=== PATIENT | female | born 1945 | race Caucasian/White ===

== ENCOUNTER → 2016-05-11 | Outpatient (REF) | payer MEDICARE ==
[~2016-05-11] MED LIST: BUPR150T9 PO; NAPR250T34 PO
[2016-05-11 16:42] LABS: BILIRUBIN,URINE Negative (Negative); CLARITY,URINE Clear; COLOR,URINE Yellow; GLUCOSE, URINE (UA) Negative (Negative); LEUKOCYTE ESTERASE ,URINE Negative (Negative); PH,URINE 6.5 (5.0 - 8.0); UROBILINOGEN,URINE 0.2 mg/dL (0.2-1.0)
== END ==
LOC: LAB 16:22
PROVIDERS: ATTEND Obstetrics & Gynecology
DX: R32 Unspecified urinary incontinence (principal)
CPT/HCPCS: 81003

== ENCOUNTER → 2016-06-13 | Outpatient (CLI) | payer MEDICARE | LOC: RAD 13:38 | PROVIDERS: ATTEND Family Medicine | DX: Z12.31 Encounter for screening mammogram for malignant neoplasm of breast (principal) ==

== ENCOUNTER 2016-09-13 10:00 | Outpatient (RCR) | payer MEDICARE ==
--- NOTE | 2016-08-08 15:06 | PT/OT/ST INITIAL EVALUATION ---
Department of Health and Human Services Form Approved [facility] Care Financing Administration OMB No. [id number] PLAN OF CARE/ASSESSMENT FOR OUTPATIENT REHABILITATION (Complete for Initial Claims Only) 1. PATIENT'S NAME Sunshine Wells 2. ACC # [id number] [facility] [id number] 4. PROVIDER NO. [id number] 5. TYPE: PT 6. PRIOR HOSPITALIZATION NA 7. PRIMARY DX N32.81 overactive bladder 8. TREATMENT/THERAPY DX N39.46 mixed urinary incontinence. R53.1 weakness. 9. ONSET DATE 04/06/2016 10. REFERRAL DATE 07/03/2016 11. SOC. DATE 08/02/2016 12. TIME OF EVAL 12:[address] Jorge L Lara 13. CHARGES/UNITS NA 14. G CODES 15. PRIOR LEVEL OF FUNCTION; PERTINENT HISTORY (Prior therapy results, reason for referral.) S: Prior to intervention, the patient did agree to today's physical therapy evaluation and treatment. Description/mechanism of injury: This patient is referred to physical therapy by Dr. Lara for evaluation and treatment of urge urinary incontinence with overactive bladder. The patients states that she has had trouble with incontinence for approximately 30 years; however, she noticed a great increase in her symptoms and noticed with palpation and sensation that she has a bladder prolapse. Noticed this in May 2015 while she was showering. This initiated the referral process to [facility] [employer], Dr. Lara. The patient states that incontinence has been increasingly disturbing in her function for the last couple of years, but a great increase in the 3 months since she noticed the prolapse. The patient states that incontinence interferes with activities such as shopping and traveling. She has previously been able to walk for exercise, which the prolapse and incontinence is currently interfering with this activity. She was recently on a bus trip and noticed that she wasted a lot of her travel time by standing in line for the bathroom. She has to wear a maxi pad at all times and has to change it several times during the day. She estimates that she leaks urine at least 10 times a day. She has trouble with urge urinary incontinence, having to oliveira to the bathroom and this is often when a leak will occur. She also has some stress incontinence, but indicates that this is less of a factor with only intermittent incontinence episodes when she coughs or laughs. 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 This requires her to lift, stand, and walk for several hours at a time. She continues to be active in her home where she is responsible for the normal cooking and cleaning tasks. She was previously able to walk for exercise, but is currently not able to do so due to her incontinence symptoms. Therapy History: The patient does not receive physical therapy intervention for this problem, nor for other issues. Obstacles to delivery of care: The patient appears to be an excellent candidate for physical therapy. Past medical history: The patient has had gallbladder surgery. She had a compound fracture of the right fibula in 2000 with surgical fixation and then removal of hardware. She was diagnosed with osteoarthritis, reports chronic low back pain. The patient had two vaginal deliveries, 47 and 45 years ago, 8 to 9 pounds. She did not have complications with the pregnancies or deliveries. Otherwise the patient denies significant medical history, denies acute sensation changes in the perineum, denies saddle anesthesia, and denies night pain. Current medications: The patient is not currently taking any prescription medications. Personal health rating: Good. Patient's Goal: The patient's goal is to learn how to manage her symptoms, better, to be able to return to walking for exercise, to not have as much incontinence and prolapse sensation. She also hopes to decrease the use of pads to decrease expense. 16. INITIAL ASSESSMENT/SAFETY PRECAUTIONS/MEDICAL COMPLICATIONS (Level of function at start of care. Be specific, use objective measures, list problems.) O: APPEARANCE AND OBSERVATION: The patient is a healthy appearing elderly female. She is moderately overweight. She demonstrates normal external genitalia. She states that she had manually replaced the bladder prolapse this morning during her shower. At this time there is no obvious prolapse, although moderate posterior wall and severe anterior vaginal wall laxity is noted. STRENGTH: Strength to test of the levator ani/pelvic floor muscle group is 3+/5. Her endurance is 5 seconds. She can repeat this 5-second hold 4 times before fatigue of the musculature. She is able to perform a quick activation of the levator ani group for 3 repetitions before fatigue. Volitional control for activation and relaxation of the pelvic floor muscle group is fair. 17. INITIAL POC: (Specify procedures, modalities, short and longterm goals) A: This patient presents to physical therapy with chronic urinary incontinence, bladder prolapse, mix of both stress and urge incontinence. This is due, at least in great part, to her deficit in control, poor endurance, and fair plus strength of the pelvic floor musculature. Her current urinary incontinence and prolapse symptoms are interfering with her ability to be active, to be able to exercise for her personal fitness. It interferes with her volunteer activities in the community. PROGNOSIS: The patient is a good candidate for conservative measures including physical therapy to address her current symptoms. She has a good prognosis to accomplish the following goals, provided good patient compliance and attendance. FUNCTIONAL LIMITATION CODES: Current status [id number]. Goal status [id number]. Functional limitation coding based on current patient presentation, physical therapist professional judgment, and urinary incontinence symptoms interfering with the patient's function including activity in her home and community, walking, prolonged standing. Pelvic Floor Distress Inventory Questionnaire score 69/100, 69% disruption in function due to her urinary incontinence. INFORMED CONSENT: The physical therapy diagnosis, prognosis, treatment plan, risks and expected outcomes were discussed with the patient on this date. The patient agrees to today's established physical therapy plan of care. SHORT TERM GOALS: 1. In 2 weeks the patient to progress pelvic floor muscle awareness and bladder training via completing a bladder diary. 2. In 6 weeks, the patient to demonstrate independence with a home exercise program to address her symptoms. 3. In 8 weeks, the patient to improve pelvic floor muscle endurance to 15 seconds at strength 4/5 to be able to walk for exercise with a moderately full bladder. 4. In 16 weeks, the patient to rate a 4/7 or greater on the Global Rating of Perceived Change Scale (GRC) regarding her pelvic function. 5. In 16 weeks, the patient to demonstrate improved pelvic and bladder function via a Pelvic Floor Distress Inventory Questionnaire score of 40% or less. P: Plan to see this patient 1 time a week for 16 weeks in physical therapy to address chronic urinary incontinence, bladder prolapse, weakness. Physical therapeutic interventions will include manual therapy as needed to address facilitation of pelvic floor muscle, address tight areas in the musculature. Therapeutic exercise and neuromuscular reeducation will be performed with emphasis on proper coordination of breathing, core muscle activation, pelvic floor musculature and relating volitional control to normal daily activities will be performed. Therapeutic activities for training for ADLs with these emphases will be provided. The patient has been issued an initial home exercise program on this date, which will be progressed as warranted. OUTCOME MEASURE: Pelvic Floor Distress Inventory Questionnaire (PFDIQ) 69/100 Thank you for the referral of this patient. 18. FREQUENCY 1 time a week 19. DURATION 16 weeks 20. FUNCTIONAL LEVEL (End of claim period) 21. PHYSICIAN SIGNATURE ? ON FILE OR ENTER HERE: 22. DATE: I certify the need for these services furnished under this plan of care and if for partial hospitalization. 23. CERTIFICATION FROM THROUGH FORM [id number]
== END 2016-10-02 09:58 | disposition home or self-care (01) ==
LOC: PT 10:00
PROVIDERS: ATTEND Obstetrics & Gynecology
DX: N32.81 Overactive bladder (principal)
CPT/HCPCS: 97110; 97112; 97161; G8978; G8979